=== PATIENT | male | born 1960 | race Caucasian/White ===

== ENCOUNTER 2018-06-06 11:27 | Day surgery (SDC) | payer BC, OTHER ==
[2018-05-29 15:58] VITALS: BMI 29.7
[~2018-06-06 11:27] MED LIST: DEXAMETHASONE SOD PHOSPHATE 10 MG/ML 1 ML VIAL IV ONE; HEPARIN SODIUM,PORCINE 5,000 UNIT/ML 1 ML VIAL SQ ONE; LACTATED RINGERS 1,000 ML IV SCH; LIDOCAINE 1% 20 ML VIAL (10MG/ML) FOR IV START INTRADERMA PRN; MIDAZOLAM 2 MG/2 ML VIAL IV PRN; ONDANSETRON 4 MG/2 ML VIAL IVP ONE; ceFAZolin IN SWFI 2 GM/20 ML SYRINGE IVP ONE; fentaNYL (PF) 50 MCG/ML 2 ML AMP IV PRN
[2018-06-06 13:15] LABS: Glucose,Whole Blood 115 mg/dL (75-99)
--- NOTE | 2018-06-06 14:18 | P.GSHP ---
History of Present Illness H&P Date: 06/06/18 Chief Complaint: Umbilical hernia This a 57-year-old male referred from Dr. Urbina. Patient is today for laparoscopic robotic-assisted repair of umbilical hernia. Patient developed a 3 cm umbilical hernia. Past Medical History Past Medical History: Hypertension Additional Past Medical History / Comment(s): VARICOSE VEINS- RIGHT LEG History of Any Multi-Drug Resistant Organisms: None Reported Additional Past Surgical History / Comment(s): VASECTOMY Past Anesthesia/Blood Transfusion Reactions: No Reported Reaction Smoking Status: Never smoker - Past Family History Father Family Medical History: Cancer Medications and Allergies Home Medications Medication Instructions Recorded Confirmed Type Magnesium 400 mg PO DAILY 05/29/18 06/06/18 History Allergies Allergy/AdvReac Type Severity Reaction Status Date / Time No Known Allergies Allergy Verified 06/06/18 14:00 Surgical - Exam Vital Signs Temp Pulse Resp BP Pulse Ox 97.7 F 77 18 157/101 96 06/06/18 12:57 06/06/18 12:57 06/06/18 12:57 06/06/18 12:57 06/06/18 12:57 - General well developed, no distress - Eyes PERRL - ENT normal pinna - Neck no masses - Respiratory normal expansion - Cardiovascular Rhythm: regular - Abdomen Abdomen: soft, non tender Hernia: umbilical (3 cm umbilical hernia, reducible) Results - Labs Abnormal Lab Results - Last 24 Hours (Table) 06/06/18 Range/Units 13:09 POC Glucose (mg/dL) 115 H (75-99) mg/dL Assessment and Plan Assessment: Reducible umbilical hernia. We'll perform laparoscopic robotic-assisted repair.
[2018-06-06] MEDS ORDERED: GLYCOPYRROLATE 0.2 MG/ML 2 ML VIAL ONE (16:15)
[2018-06-06] MEDS ORDERED: fentaNYL (PF) 50 MCG/ML 2 ML AMP ONE (16:15)
[2018-06-06] MEDS ORDERED: HYDROmorphone (PF) 1 MG/ML ONE (16:15)
[2018-06-06] MEDS ORDERED: PROPOFOL 10 MG/ML 20 ML VIAL IV ONE (16:15)
[2018-06-06] MEDS ORDERED: MIDAZOLAM 2 MG/2 ML VIAL ONE (16:15)
[2018-06-06] MEDS ORDERED: NEOSTIGMINE 1 MG/ML 10 ML VIAL ONE (16:15)
[2018-06-06] MEDS ORDERED: VECURONIUM 10 MG VIAL IV ONE (16:15)
[2018-06-06] MEDS ORDERED: LIDOCAINE 1% INJ 10MG/ML (20 ML MDV) ONE (16:15)
[2018-06-06] MEDS ORDERED: SUCCINYLCHOLINE CHLORIDE 100 MG/5 ML SYR IV ONE (16:15)
[2018-06-06] MEDS ORDERED: ROPIVACAINE 5 MG/ML 30 ML VIAL MISCELLANE ONE ×2 (16:23)
[2018-06-06] MEDS ORDERED: LACTATED RINGERS 1,000 ML IV ONE (17:07)
--- NOTE | 2018-06-06 17:15 | P.OP ---
Date of Procedure: 06/06/18 Preoperative Diagnosis: Umbilical hernia Postoperative Diagnosis: Incarcerated umbilical hernia Procedure(s) Performed: Lap or scopic robotic assistance repair of incarcerated umbilical hernia Partial omentectomy Anesthesia: LEYDA Surgeon: Julián Martinez Estimated Blood Loss (ml): 5 Pathology: other (Omentum/hernia sac) Condition: stable Disposition: PACU Description of Procedure: The patient was placed on the operating table in the supine position. He received general anesthesia. His abdomen was prepped and draped usual fashion. Using a 5 mm optical trocar under direct visualization the peritoneal cavity was entered in the left upper quadrant. The abdomen was then insufflated. The laparoscope was placed back into the perineal cavity. Next a 8 mm robotic trocar was placed in the left lower quadrant and a 12 mm robotic trocar was placed in the left lateral position. The original 5 mm trocar was exchanged for a 8 mm robotic trocar. The patient's placed in the left side up position. And the patient was undocked the robot. The umbilical hernia was visualized. Using hook cautery the peritoneum over the umbilical hernia was excised. The incarcerated omentum was transected with left cautery The fascial opening was repaired using 0V LOC suture. Next a piece of 11 cm round ventral light ST mesh was placed into the. Cavity and secured with 2 OV lock suture. The patient was undocked the robot. The needles were retrieved. The incarcerated omentum was retrieved. The fascia of the 12 mm trocar site was closed with 0 Ethibond suture. Skin was closed interrupted 3-0 Monocryl suture. Dermabond dressings was applied. Patient top procedure well and was sent to recovery room stable condition.
[2018-06-06] MEDS: HYDROmorphone 0.5 MG/0.5 ML SYRINGE IVP PRN ×4 (17:34→18:10)
[2018-06-06 17:41] VITALS: TEMP 97.3
[2018-06-06] MEDS ORDERED: ENALAPRILAT 1.25 MG/ML 1 ML VIAL IV ONE (17:54)
[2018-06-06 19:17] VITALS: RESP 18
[2018-06-06] MEDS ORDERED: HYDROcodone/APAP 7.5-325MG 1 EACH TAB PO ONE (19:58)
[2018-06-06 20:50] VITALS: BP 138/88
[2018-06-06 21:00] VITALS: PULSE 84
--- NOTE | 2018-06-08 07:17 | P.ONQ ---
Anesthesiology Proc Note - PNB - Peripheral Nerve Block Performed Bilateral Rectus Abdominis Single Time Out Performed: Yes Procedure Start Time: 13:41 Procedure Stop Time: 13:48 Indication: Acute Post-Operative Pain, Requested by physician Sedation Type: Sedate with meaningful contact maintained Preparation: Sterile Prep Position: Supine Needle Size: 50mm (2") Needle Gauge: 21 Technique: Ultrasound Injectate: 0.5% Ropivacaine (see comment for volume) (ropi .5% 30cc) Blood Aspirated: No Pain Paresthesia on Injection Noted: No Resistance on Injection: Normal Events: Uneventful and Well Tolerated
== END 2018-06-06 21:15 | disposition home or self-care (01) ==
LOC: OR 11:27
PROVIDERS: ATTEND Surgery
DX: K42.0 Umbilical hernia with obstruction, without gangrene (principal); I10 Essential (primary) hypertension
CPT/HCPCS: 49653; C1781; J2250; J1644; J1100; J2405; J2795; J1170; J0690; 88305

== ENCOUNTER → 2023-11-27 | Outpatient (CLI) | payer OTHER ==
[2023-11-28 02:28] LABS: BUN/Creat Ratio 18.22 Ratio (12.00-20.00); Blood Urea Nitrogen 16.4 mg/dL (9.0-27.0); Calcium 9.9 mg/dL (8.7-10.3); Chloride 98 mmol/L (96-109); Glucose 177 mg/dL (70-110); Potassium 4.9 mmol/L (3.5-5.5); Sodium 137 mmol/L (135-145)
[2023-11-28 03:30] LABS: Basophils # (A) 0.04 X 10*3/uL (0.00-0.10); Basophils % (A) 0.6 %; Eosinophils # (A) 0.09 X 10*3/uL (0.04-0.35); Eosinophils % (A) 1.3 %; HCT 43.9 % (39.6-50.0); HGB 14.6 g/dL (13.0-17.0); Lymphocytes % (A) 25.6 %; MCH 30.1 pg (27.0-32.0); MCHC 33.3 g/dL (32.0-37.0); MCV 90.5 FL (80.0-97.0); Mean Platelet Volume 9.9 FL (9.5-12.2); Monocytes # (A) 0.64 X 10*3/uL (0.20-1.00); Monocytes % (A) 9.1 %; NRBC Per 100 WBC 0 X 10*3/uL (0.00-0.01); Neutrophils # (A) 4.44 X 10*3/uL (1.80-7.70); Neutrophils % (A) 63.3 %; Platelet Count 236 X 10*3/uL (140-440); RBC 4.85 X 10*6/uL (4.40-5.60); RDW 12.7 % (11.5-14.5); WBC 7.02 X 10*3/uL (4.50-10.00)
[2023-11-28 06:09] LABS: Appearance,Urine Clear (Clear); Bilirubin,Urine Negative (Negative); Blood,Urine Negative (Negative); Color,Urine Yellow (Yellow); Ketones,Urine Trace (Negative); Nitrite,Urine Negative (Negative); Specific Gravity,Urine >1.035 (1.001-1.030); Urobilinogen,Urine 0.2
== END | disposition home or self-care (01) ==
LOC: LABPAT 15:38
PROVIDERS: ATTEND Urology
DX: Z01.812 Encounter for preprocedural laboratory examination (principal); C61 Malignant neoplasm of prostate
CPT/HCPCS: 36415; 80048; 81003; 85025; 86850; 86900; 86901; 87086

== ENCOUNTER 2023-12-06 09:28 | Day surgery (SDC) | payer BC, OTHER ==
[2023-11-29 13:22] VITALS: BMI 25.8
[~2023-12-06 09:28] MED LIST changes: -DEXAMETHASONE SOD PHOSPHATE 10 MG/ML 1 ML VIAL IV ONE; -HEPARIN SODIUM,PORCINE 5,000 UNIT/ML 1 ML VIAL SQ ONE; -LACTATED RINGERS 1,000 ML IV SCH; +LIDOCAINE 1% (10MG/ML) FOR IV START INTRADERMA PRN; -LIDOCAINE 1% 20 ML VIAL (10MG/ML) FOR IV START INTRADERMA PRN; -ONDANSETRON 4 MG/2 ML VIAL IVP ONE; -ceFAZolin IN SWFI 2 GM/20 ML SYRINGE IVP ONE; -fentaNYL (PF) 50 MCG/ML 2 ML AMP IV PRN
[2023-12-06] MEDS: HEPARIN SODIUM,PORCINE 5,000 UNIT/ML 1 ML VIAL SQ PRN (09:55)
[2023-12-06] MEDS: LACTATED RINGERS 1,000 ML IV ONE ×3 (09:55→16:49)
[2023-12-06] MEDS: DEXAMETHASONE SOD PHOSPHATE 4 MG/ML 1 ML VIAL IV ONE (09:55)
[2023-12-06] MEDS: ONDANSETRON 4 MG/2 ML VIAL IVP ONE (09:55)
[2023-12-06] MEDS: LACTATED RINGERS 1,000 ML IV SCH (09:55)
[2023-12-06 10:24] LABS: Glucose,Whole Blood 118 mg/dL (70-110)
--- NOTE | 2023-12-06 10:57 | P.HPIHPCON ---
History of Present Illness H&P Date: 12/06/23 Chief Complaint: Prostate cancer This is a 63-year-old male with history of [place] 7 prostate cancer. Option of radiation therapy versus prostatectomy was discussed with him in detail. Discussed risk which includes but not limited to bleeding, infection, urinary incontinence, erectile dysfunction. Discussed also risk of injury to nearby organs. Risk of anesthesia was also discussed. Discussed risk of cancer recurrence and the need for postoperative surveillance. He understood all the risk and agreed to proceed Consent for Procedure: I have explained the operation/procedure to the patient, including the risks, benefits, side effects, alternative therapies (including not receiving the proposed treatment or service), the likelihood of the patient achieving his/her goals, and potential recuperation problems for the procedure/sedation/analgesia, as well as any blood products, if indicated. I also explained to the patient the risks, benefits and side effects of the alternatives, as well as the risks related to not receiving the proposed procedure, care, treatment, or services. Past Medical History Past Medical History: Cancer, Diabetes Mellitus, Hypertension, Pneumonia, Prosta te Disorder Additional Past Medical History / Comment(s): Recent dx prostate ca Jul 2023 no chemo-no radiation, VARICOSE VEINS- RIGHT LEG, type II diabetic History of Any Multi-Drug Resistant Organisms: None Reported Past Surgical History: Hernia Repair Additional Past Surgical History / Comment(s): Recent bx prostate Jul 2023.VASECTOMY, umbilical hernia repair. Past Anesthesia/Blood Transfusion Reactions: No Reported Reaction, Motion Sickness Additional Past Anesthesia/Blood Transfusion Reaction / Comment(s): No hx blood transfusion. Smoking Status: Never smoker - Past Family History Father Family Medical History: Cancer Medications and Allergies Home Medications Medication Instructions Recorded Confirmed Type Magnesium 400 mg PO DAILY 05/29/18 11/29/23 History Acetaminophen Tab [Tylenol] 650 mg PO QAM PRN 11/29/23 12/06/23 History Cinnamon Bark [Cinnamon] 1,000 mg PO QAM 11/29/23 11/29/23 History Dulaglutide [Trulicity] 4.5 mg SQ TU 11/29/23 12/06/23 History Empagliflozin [Jardiance] 25 mg PO QAM 11/29/23 12/06/23 History Ibuprofen [Motrin] 400 mg PO HS PRN 11/29/23 11/29/23 History Allergies Allergy/AdvReac Type Severity Reaction Status Date / Time No Known Allergies Allergy Verified 12/06/23 09:57 Surgical - Exam Vital Signs Temp Pulse Resp BP Pulse Ox 97.1 F L 102 H 18 143/102 96 12/06/23 09:58 12/06/23 09:58 12/06/23 09:58 12/06/23 09:58 12/06/23 09:58 - General no distress, no pain - Eyes normal ocular movement, no pale - ENT normal nares, normal mucosa - Respiratory normal expansion, normal respiratory effort - Abdomen Abdomen: soft, non tender Results - Labs Abnormal Lab Results - Last 24 Hours (Table) 12/06/23 Range/Units 10:15 POC Glucose (mg/dL) 118 H (70-110) mg/dL Assessment and Plan Assessment: OR for Robotic prostatectomy and possible PLND
[2023-12-06] MEDS: MIDAZOLAM 2 MG/2 ML VIAL IVP ONE (11:13)
[2023-12-06] MEDS ORDERED: NEOSTIGMINE 1 MG/ML 10 ML VIAL ONE (12:00)
[2023-12-06] MEDS ORDERED: SUCCINYLCHOLINE CHLORIDE 200 MG/10 ML VIAL IV ONE (12:00)
[2023-12-06] MEDS ORDERED: SODIUM CHLORIDE 0.9% (PF) 10 ML VIAL ONE (12:00)
[2023-12-06] MEDS ORDERED: ROCURONIUM 10 MG/ML (5 ML VIAL) IV ONE (12:00)
[2023-12-06] MEDS ORDERED: LIDOCAINE 1% INJ 10MG/ML (20 ML MDV) ONE (12:00)
[2023-12-06] MEDS ORDERED: PHENYLEPHRINE-0.9% NACL SYG 1,000 MCG/10 ML SYRINGE ONE (12:00)
[2023-12-06] MEDS ORDERED: MIDAZOLAM 2 MG/2 ML VIAL ONE (12:00)
[2023-12-06] MEDS ORDERED: GLYCOPYRROLATE 0.2 MG/ML 2 ML VIAL ONE (12:00)
[2023-12-06] MEDS ORDERED: PROPOFOL 10 MG/ML 20 ML VIAL IV ONE (12:00)
[2023-12-06] MEDS ORDERED: HYDROmorphone (PF) 1 MG/ML ONE (12:00)
[2023-12-06] MEDS ORDERED: DEXAMETHASONE SOD PHOSPHATE 4 MG/ML 1 ML VIAL ONE (12:00)
[2023-12-06] MEDS ORDERED: ROPIVACAINE 5 MG/ML 30 ML VIAL ONE (12:00)
[2023-12-06] MEDS ORDERED: fentaNYL (PF) 50 MCG/ML 2 ML AMP ONE (12:00)
[2023-12-06] MEDS ORDERED: hydrALAZINE HCL 20 MG/ML 1 ML VIAL ONE (12:00)
[2023-12-06] MEDS ORDERED: HYDROmorphone 1 MG/ML 1 ML SYRINGE IVP PRN (12:14)
[2023-12-06] MEDS ORDERED: ONDANSETRON 4 MG/2 ML VIAL IVP PRN (12:14)
[2023-12-06] MEDS ORDERED: HYDROcodone/APAP 5-325MG 1 EACH TAB PO PRN (12:15)
[2023-12-06] MEDS: BUPIVACAINE (PF) 0.25% 30 ML VIAL SQ ONE ×2 (13:04→16:36)
--- NOTE | 2023-12-06 13:09 | P.ANPRN ---
Procedure Note - Anesthesia - Nerve Block Performed Bilateral Erector Spinae Single Time Out Performed: Yes Date of Procedure: 12/06/23 Procedure Start Time: 11:12 Procedure Stop Time: :22 Location of Patient: PreOp Indication: Acute Post-Operative Pain, Requested by Surgeon Sedation Type: Sedate with meaningful contact maintained Position: Prone Needle Types: Pajunk Needle Gauge: 21 Ultrasound used to visualize needle placement: Yes Ultrasound used to observe medication spread: Yes Blood Aspirated: No Pain Paresthesia on Injection Noted: No Resistance on Injection: Normal Image Stored and Saved: Yes Events: Uneventful and Well Tolerated (Ropivacaine 0.5% 15 cc plus normal saline 10 cc plus dexamethasone 4 mg)
[2023-12-06] MEDS: METHYLENE BLUE 50 MG/10 ML AMPUL INJ ONE (14:45)
[2023-12-06 15:16] LABS: Glucose,Whole Blood 127 mg/dL (70-110)
--- NOTE | 2023-12-06 16:52 | P.OP ---
Date of Procedure: 12/06/23 Preoperative Diagnosis: prostate cancer Postoperative Diagnosis: same Procedure(s) Performed: Robotic assisted laparoscopic radical prostatectomy with bilateral lymph lymph node dissection, and lysis of adhesion Implants: None Anesthesia: MAYELAA Surgeon: Wan Bower Estimated Blood Loss (ml): 150 Pathology: other (Prostate, bilateral seminal vesicles, bilateral pelvic lymph nodes) Condition: stable Disposition: PACU Indications for Procedure: This is a 63-year-old male with history of [place] 7 prostate cancer. Option of radiation therapy versus prostatectomy was discussed with him in detail. Discussed risk which includes but not limited to bleeding, infection, urinary incontinence, erectile dysfunction. Discussed also risk of injury to nearby organs. Risk of anesthesia was also discussed. Discussed risk of cancer recurrence and the need for postoperative surveillance. He understood all the risk and agreed to proceed Operative Findings: Extensive adhesion involving the midline at the level of the mesh, omentum was adherent to the mesh. Significant enlargement of the median lobe with intravesical extension Description of Procedure: After preoperative antibiotics were started, the patient was taken to the operating room. Anesthesia was induced and the patient was placed in a supine position , with adequate padding of the pressure points, shoulders, back, legs and arms. He was then prepped and draped in the standard fashion. A critical pause was performed using two patient identifiers. A 16F jackman catheter was placed to gravity drainage. A pneumo-peritoneum was created with placement of a Veress needle to 20 mm Hg without complication, Veress needle was placed in the left upper quadrant, given his midline mesh and history of umbilical hernia repair an 8 Fr trocar was placed at the left upper quadrant. Next the robotic camera was placed through the port, at this point extensive adhesions were seen along the midline, next a second port was placed lateral to the 8 mm port. Next using the LigaSure omental fat adhesions were taken down along the midline as there was significant amount of omentum stuck to the midline mesh. More laterally there was small bowel that was adherent to the mesh this was taken down sharply using a laparoscopic scissors. After taking down the adhesions which took greater than 45 minutes 2 additional ports were placed along the right side and a 5 mm right paramedian. Ports were placed under vision. After taking our edition there was no evidence of bowel injury. After the patient was placed in the trendelenberg position, the robot was then docked to the 8mm robotic ports and then each robotic arm and tower was checked in relation to the patient's legs and hands to avoid inadvertent compression. The peritoneal cavity was inspected. Adhesions were taken down along with the left lower quadrant involving the sigmoid colon An inverted U-shaped incision began laterally to the left medial umbilical ligament and extended high across the midline to the right umbilical ligament. The limbs of the "U" extended to the level of the vasa on both sides. We next developed the preperitoneal space and the space of Retzius. Cautery was used to dissected the bladder away from the prostate. After the anterior bladder neck was incised and the bladder entered the the posterior bladder neck was exposed and the ureteral orifces identified. At this point it was noticed that patient had a significant median lobe with intravesical extension. The median lobe did extend to the level of the trigone, thus the median lobe was carefully dissected off of the bladder using cautery. Care was taken not to injure the ureteral orifice. There was thickened tissue along the anterior bladder neck that was completely excised and sent as a bladder neck margin The posterior bladder neck was then incised and dissected away from the prostate. The vas and the seminal vesicles were now exposed and dissected to their insertions into the prostate and were not spared. The posterior layer of the Denonvillier's fascia was incised to enter valeria the plane between prostate and perirectal fat. Each lateral pedicle was controlled with clips and cautery for hemostasis. Complete nerve preservation was performed bilaterally. The puboprostatic ligament was incised where it inserted into the apex of the prostate and a plane between urethra and dorsal venous complex developed to expose the anterior urethral surface. The anterior wall of the urethra was transected with the cut setting a few millimeters distal to the apex of the prostate. The dorsal vein was ligated using 3-0 V lock bilateral obturator and external iliac lymph node packets were carefully dissected after careful visualization of the hypogastric artery and obturator nerve. There was careful attention paid to hemostasis with judicious use of cautery. The urethrovesical anastomosis was performed . the posterior denovillers was reapproximated using 3-0 V lock. A9 and 9 inch 3-0 V-Lock suture was used to anastomose the urethra and bladder, starting at the 6:00 posterior position. Mucosa was secured in every stitch, to ensure a mucosa to mucosa anastomosis. The stitch was regularly cinched and the anastomosis tightened. Care was taken to not violate the ureteral orifices. The Jackman catheter was advanced, the bladder filled, and the anastomosis was tested, as described above. Anastomsis was watertight at 150 mL. Hemostatic agents were applied The periumbilical fascia was closed with 1-0-PDS suture in [id number] fashion. All ports were closed with a subcuticular 4-0 monocryl and Dermabond. Sponge, instrument, and needle counts were correct at the end of the case x2. All specimens including prostate and lymph nodes were sent to pathology for diagnosis and will be available in a week. The patient tolerated the surgery well and without complication. He awoke without difficulty and was taken to the recovery room in stable condition
[2023-12-06 16:57] LABS: Glucose,Whole Blood 206 mg/dL (70-110)
[2023-12-06] MEDS: INSULIN ASPART (NovoLOG) 100 UNIT/ML VIAL SQ ONE (17:05)
[2023-12-06] MEDS: HYDROmorphone 0.5 MG/0.5 ML SYRINGE IVP PRN (17:25)
[2023-12-06] MEDS: SODIUM CHLORIDE 0.9% 1,000 ML IV SCH (17:29)
[2023-12-06] MEDS: HEPARIN SODIUM,PORCINE 5,000 UNIT/ML 1 ML VIAL SQ SCH (17:29)
[2023-12-06] MEDS: KETOROLAC 15 MG/ML 1 ML VIAL IVP SCH (18:19)
[2023-12-06 21:12] LABS: Glucose,Whole Blood 175 mg/dL (70-110)
[2023-12-07 06:15] LABS: Glucose,Whole Blood 166 mg/dL (70-110)
[2023-12-07 08:21] VITALS: BP 155/93; PULSE 105; RESP 17; TEMP 97.5
--- NOTE | 2023-12-07 09:00 | P.DS ---
Providers Expected date of discharge: 12/07/23 Attending physician: Wan Bower MD Primary care physician: BARNEY Kelly Hospital Course: On the day of admission, the patient underwent a robotic assisted laparoscopic prostatectomy with bilateral pelvic lymphadenectomy. Lysis of adhesions was also required. The perioperative course was unremarkable. Overnight, the patient was comfortable and slept well. On the first postoperative day, he tolerated breakfast without nausea. He was afebrile. He was able to get out of bed and into his chair without difficulty, though he had not yet ambulated. On examination, the abdomen was soft and nondistended. Incisions were clean, dry, and intact. The Hernández catheter was draining urine which was faintly blood- tinged. Postoperative instructions were reviewed with the patient. He was advised to monitor his blood pressure, which was borderline, and contact Talita Hussein NP if his blood pressure is elevated at home. Procedures: Robotic assisted laparoscopic prostatectomy (RALP) with bilateral pelvic lymphadenectomy on December 06, 2023. Patient Condition at Discharge: Good Plan - Discharge Summary Discharge Rx Participant: No New Discharge Prescriptions: New Ketorolac [Toradol] 10 mg PO Q6HR PRN #10 tab PRN Reason: Pain Ciprofloxacin HCl [Cipro] 250 mg PO Q12HR #6 tablet No Action Magnesium 400 mg PO DAILY Acetaminophen Tab [Tylenol] 650 mg PO QAM PRN PRN Reason: Pain Ibuprofen [Motrin] 400 mg PO HS PRN PRN Reason: Pain Empagliflozin [Jardiance] 25 mg PO QAM Dulaglutide [Trulicity] 4.5 mg SQ TU Cinnamon Bark [Cinnamon] 1,000 mg PO QAM Discharge Medication List Magnesium 400 mg PO DAILY 05/29/18 [History] Acetaminophen Tab [Tylenol] 650 mg PO QAM PRN 11/29/23 [History] Cinnamon Bark [Cinnamon] 1,000 mg PO QAM 11/29/23 [History] Dulaglutide [Trulicity] 4.5 mg SQ TU 11/29/23 [History] Empagliflozin [Jardiance] 25 mg PO QAM 11/29/23 [History] Ibuprofen [Motrin] 400 mg PO HS PRN 11/29/23 [History] Ciprofloxacin HCl [Cipro] 250 mg PO Q12HR #6 tablet 12/07/23 [Rx] Ketorolac [Toradol] 10 mg PO Q6HR PRN #10 tab 12/07/23 [Rx] Follow up Appointment(s)/Referral(s): Wan Bower MD [STAFF PHYSICIAN] - 10 Days Activity/Diet/Wound Care/Special Instructions: Discharge home with Hernández catheter. Instruct patient to use overnight drainage bag as well as urinary leg bag. Okay to shower. Diet as tolerated. No lifting, driving, or strenuous activity. Reassure patient that abdominal wall ecchymosis and penoscrotal swelling are normal. Instruct patient to begin taking antibiotics one day prior to Hernández catheter removal. Discharge Disposition: HOME SELF-CARE
[2023-12-07] MEDS: MAGNESIUM OXIDE 400 MG TAB PO SCH (09:26)
[2023-12-07] MEDS: DAPAGLIFLOZIN PROPANEDIOL 10 MG TABLET PO SCH (09:33)
== END 2023-12-07 11:47 | disposition home or self-care (01) ==
LOC: OR 09:28 → 4SSUR 16:49 → OR 12-07 11:47
PROVIDERS: ATTEND Urology
DX: C61 Malignant neoplasm of prostate (principal); G89.18 Other acute postprocedural pain; Z85.46 Personal history of malignant neoplasm of prostate; Z79.899 Other long term (current) drug therapy; I10 Essential (primary) hypertension; E78.5 Hyperlipidemia, unspecified
CPT/HCPCS: 55866; 38570; 64999; 88344; 88305; 88307; 88309; C1762; J2250; J0330; J0360; J1644 ×2; J1100; J2710; J0690; J2405; J2001; J3010; J1170 ×2; J2795; J1885 ×2; J2704; Q9968; J2371; J0665

== ENCOUNTER → 2024-01-11 | Outpatient (CLI) | payer BC | END | disposition home or self-care (01) | LOC: LABWHC1 10:31 | PROVIDERS: ATTEND Urology | DX: C61 Malignant neoplasm of prostate (principal) | CPT/HCPCS: 36415; 84153 ==

== ENCOUNTER → 2024-04-01 | Outpatient (CLI) | payer BC ==
--- NOTE | 2024-04-01 16:01 | XR ---
EXAMINATION TYPE: XR cervical spine limited DATE OF EXAM: 04/01/2024 3:27 PM CLINICAL INDICATION:Male, 63 years old with history of M53.82 M53.2X2; [facility] COMPARISON: None TECHNIQUE: The cervical spine was imaged in frontal, lateral, and odontoid. FINDINGS: The osseous structures show normal alignment without evidence of an acute fracture. There are osteoph ytes noted throughout the cervical spine on the anterior and lateral aspects of the vertebral bodies. The intervertebral disk spaces are narrowed at multiple levels Pedicles are intact. Soft tissues ar e within normal limits. The odontoid appears intact. IMPRESSION: 1. No fracture or dislocation. 2. Mild degenerative disc disease changes of the cervical spine.
== END | disposition home or self-care (01) ==
LOC: RADXRMAIN 15:04
PROVIDERS: ATTEND Nurse Practitioner Family
DX: M50.30 Other cervical disc degeneration, unspecified cervical region (principal); M53.82 Other specified dorsopathies, cervical region; M53.2X2 Spinal instabilities, cervical region
CPT/HCPCS: 72040

== ENCOUNTER → 2024-04-01 | Outpatient (CLI) | payer BC | END | disposition home or self-care (01) | LOC: LABWHC1 14:20 | PROVIDERS: ATTEND Urology | DX: C61 Malignant neoplasm of prostate (principal) | CPT/HCPCS: 36415; 84153 ==